=== PATIENT | male | born 1990 | race Caucasian/White ===

== ENCOUNTER 2019-02-25 09:43 | Emergency (ER) | payer BC, OTHER ==
[~2019-02-25] VITALS: Ht 188 cm; Wt 117.9 kg
[~2019-02-25 09:43] MED LIST: NAPR-1071 PO; PRD20T PO; TRAM50TA2 PO
[2019-02-25] MEDS ORDERED: KETOROLAC 60 MG/2 ML VIAL IM STA (09:58)
--- NOTE | 2019-02-25 10:15 | ED Upper Extremity ---
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 WHEN HE GOT WRIST CAUGHT IN DOOR C/O PAIN IN R WRIST. HAS A OLD INJURY TO WRIST. HAS APPOINTMENT AT [facility] IN MARCH TO HAVE WRIST LOOKED AT. REPORTS THIS WILL NOT BE WORKERS COMP. 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 He apparently went to open 1 door and the opposing door closed on his wrist. Has pain to the volar aspect of the wrist and feels some numbness in that area. No decrease in movement or distal sensation. Onset: this morning (within the last hour) Severity: mild Pain/Injury Location: right wrist Method of Injury: direct blow Modifying Factors: Improves With Immobilization; Worse With Movement Allergies and Home Medications Allergies Coded Allergies: NSAIDS (Non-Steroidal Anti-Inflamma (Verified Adverse Reaction, Unknown, HAS ULCER , 02/25/19) Patient Home Medication List Home Medication List Reviewed: Yes Review of Systems Constitutional: see HPI; No chills, No fever Respiratory: no symptoms reported Cardiovascular: no symptoms reported Musculoskeletal: see HPI, joint pain, muscle pain Skin: no symptoms reported Past Tevynjk-Icswvz-Rqyjhi Hx Past Med/Social Hx: Reviewed Nursing Past Med/Soc Hx Patient Social History Alcohol Use: Denies Use Recreational Drug Use: No Smoking Status: Never a Smoker Recent Foreign Travel: No Contact w/Someone Who Travel: No Recent Infectious Disease Expo: No Seasonal Allergies Seasonal Allergies: No Past Medical History Surgeries: Yes Orthopedic (multiple right wrist) Respiratory: No Cardiac: Yes Hypertension Neurological: No Reproductive Disorders: No Gastrointestinal: Yes (ULCER) Musculoskeletal: No Endocrine: No Cancer: No Psychosocial: Yes ADD/ADHD Integumentary: No Blood Disorders: No Family Medical History No Pertinent Family Hx Physical Exam Vital Signs Vital Signs - First Documented 02/25/19 10:01 Temp 96.4 Pulse 96 Resp 18 B/P (MAP) 142/68 (92) Pulse Ox 100 Capillary Refill : Less Than 3 Seconds Height, Weight, BMI Height: 6'2.00" Weight: 260lbs. oz. 117.430243sl; 38.74 BMI Method:Stated General Appearance: WD/WN, no apparent distress Cardiovascular: regular rate, rhythm, no murmur Respiratory: lungs clear, normal breath sounds Wrist: Yes limited ROM, Yes pain (volar aspect of the wrist), Yes soft tissue tenderness (volar aspect); No swelling Hand: normal ROM, Right Neurologic/Psychiatric: no motor/sensory deficits, alert, other (distal circulation and sensation as well as movement intact to the right hand) Skin: normal color, warm/dry Progress/Results/Core Measures Results/Orders My Orders Orders - JD VALDEZ MD Wrist, Right, 3 Views Or More (02/25/19 09:58) Ketorolac Injection (Toradol Injection) (02/25/19 09:58) Vital Signs/I&O 02/25/19 10:01 Temp 96.4 Pulse 96 Resp 18 B/P (MAP) 142/68 (92) Pulse Ox 100 Blood Pressure Mean: 92 Progress Progress Note : Progress Note Seen and evaluated. X-ray right wrist. Toradol 60 mg IM ordered. Ice pack given. Patient has his own splint. He does have orthopedic follow-up on March 28 at [facility]. Monitor patient. 1051: No acute fracture noted. 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 Patient has splint and we'll have him continue to use that. Also has prescription for Ultracet. Has follow-up artery set. Discharged home with return precautions. Patient verbalize understanding instructions and agreement with plan. Diagnostic Imaging Diagonstic Imaging: Xray Plain Films/CT/US/NM/MRI: other (wrist right) Comments Three-view right wrist shows no acute fracture and comparison to previous of 2016. Pending radiology review. Reviewed: Reviewed by Me Departure Impression Primary Impression: Contusion of right wrist, initial encounter Disposition: HOME, SELF-CARE Condition: Stable Departure-Patient Inst. Referrals: CARMEN GALDAMEZ DO (PCP/Family) Primary Care Physician Patient Instructions: Contusion (DC) Add. Discharge Instructions: All discharge instructions reviewed with patient and/or family. Voiced understanding. Use ice packs to area of concern 20 minutes per hour as needed to reduce pain and swelling. Continue home medications as previously prescribed. Follow-up with your orthopedist as scheduled on March 28. Use splint as needed to reduce motion and improve pain. Return for worse pain, swelling, weakness, numbness or other concerns as needed. JD VALDEZ MD Feb 25, 2019 10:15
--- NOTE | 2019-02-25 10:27 | NUR ---
X RAY DONE AT BEDSIDE.
--- OUTSIDE RECORDS SUMMARY | 2019-02-25 10:49 | XMS REPORT | Continuity of Care Document ---
Author Organization Unknown Address Unknown Allergies Active Description Code Type Severity Reaction Onset Reported/Identified Relationship to Patient Clinical Status Yes No Known Drug Allergies [id number] Drug Allergy Unknown N/A 11/25/2015 Medications There is no data. Problems Date Dx Coded Attending Type Code Diagnosis Diagnosed By 11/25/2015 RAÚL LOPEZ Ot G56.01 11/25/2015 RAÚL LOPEZ Ot S63.501A 11/25/2015 RAÚL LOPEZ Ot W50.0XXA 11/25/2015 RAÚL LOPEZ Ot Y92.511 11/25/2015 RAÚL LOPEZ Ot Y99.0 11/25/2015 RAÚL LOPEZ Ot Z87.81 11/26/2015 RAÚL LOPEZ Ot G56.01 11/26/2015 RAÚL LOPEZ Ot S63.501A 11/26/2015 RAÚL LOPEZ Ot W50.0XXA 11/26/2015 RAÚL LOPEZ Ot Y92.511 11/26/2015 RAÚL LOPEZ Ot Y99.0 11/26/2015 RAÚL LOPEZ Ot Z87.81 Procedures There is no data. Results There is no data. Encounters ACCT No. Visit Date/Time Discharge Status Pt. Type Provider Facility Loc./Unit Complaint [id number] 11/25/2015 10:50:00 11/25/2015 12:41:00 DIS Emergency RAÚL LOPEZ [facility]
--- NOTE | 2019-02-25 10:54 | Diagnostic Imaging Report ---
INDICATION: Injury with pain along the palmar aspect of the wrist. COMPARISON: 11/25/2015. FINDINGS: Widening of the scapholunate interval has become apparent since the previous exam. The joint space is about 6.9 mm. An unfused avulsion off the ulnar styloid is chronic. No acute fracture is identified. IMPRESSION: New widening of the scapholunate interval and ligamentous injury to the scapholunate could not be excluded. 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 No new osseous cortical abnormality. Dictated by: Dictated on workstation # [id number]
[2019-02-25 10:59] VITALS: BP 146/82
== END 2019-02-25 10:59 | disposition home or self-care (01) ==
LOC: EDUNIT# 09:43 → ER 09:44
DX: S60.211A Contusion of right wrist, initial encounter (principal); I10 Essential (primary) hypertension; F90.9 Attention-deficit hyperactivity disorder, unspecified type; Z88.6 Allergy status to analgesic agent; Z87.19 Personal history of other diseases of the digestive system; W22.09XA Striking against other stationary object, initial encounter
CPT/HCPCS: 73110; 96372

== ENCOUNTER 2019-07-31 12:29 | Emergency (ER) | payer BC ==
[~2019-07-31] VITALS: Ht 190.5 cm; Wt 108.9 kg
[2019-07-31] MEDS ORDERED: NS IV 1000 ML 1,000 ML IV ONE (12:51)
--- NOTE | 2019-07-31 12:56 | ED GI ---
General Chief Complaint: Abdominal/GI Problems Stated Complaint: VOMITING Nursing Triage Note: PT AMBULATE TO ROOM 08 WITH C/O N/V STARTING LAST NIGHT. NO C/O ABD PAIN, DIARRHEA. PT STATES HE HAS A "SPECIAL NEEDS CHILD AT HOME" AND HIS TOLD HIM HE NEEDED TO GET CHECKED OUT BEFORE HE CAME HOME. PT STATES HIS PCP IS CLOSED TODAY. Sepsis Screen: No Definite Risk Source of Information: Patient Exam Limitations: No Limitations History of Present Illness Date Seen by Provider: Jul 31, 2019 Time Seen by Provider: 12:55 Initial Comments 29-year-old male patient presents with complaints of nausea and vomiting beginning last night. Patient denies diarrhea, constipation, abdominal distention, or abdominal pain. Patient states his 13-year-old daughter and is special needs and he was told by his not to come home until he was checked out by a medical provider. Patient states his prior care provider's office was closed today. Timing/Duration: 12-24 Hours Severity/Quality: Aching Activities at Onset: None Modifying Factors: Worsens With Eating Allergies and Home Medications Allergies Coded Allergies: NSAIDS (Non-Steroidal Anti-Inflamma (Verified Adverse Reaction, Unknown, HAS ULCER , 02/25/19) Home Medications Ondansetron 8 Mg Tab.rapdis, 8 MG PO Q6H PRN for NAUSEA/VOMITING Prescribed by: RAÚL BLUM on 07/31/19 9126 Patient Home Medication List Home Medication List Reviewed: Yes Review of Systems Review of Systems Constitutional: chills; No diaphoresis, No dizziness, No fever; malaise; No weakness EENTM: No Symptoms Reported Respiratory: Denies Cough, Denies Shortness of Air, Denies Wheezing Cardiovascular: Denies Chest Pain, Denies Edema, Denies Irregular Heart Rate, Denies Lightheadedness, Denies Palpitations, Denies Syncope Gastrointestinal: Denies Abdomen Distended, Denies Abdominal Pain, Denies Blood Streaked Stools, Denies Constipated, Denies Diarrhea, Denies Difficulty Swallowi ng; Nausea, Poor Appetite, Poor Fluid Intake; Denies Rectal Bleeding; Vomiting Genitourinary: Denies Burning, Denies Frequency, Denies Flank Pain, Denies Hematuria Musculoskeletal: back pain (left mid back pain) Skin: no symptoms reported Psychiatric/Neurological: No Symptoms Reported All Other Systems Reviewed Negative Unless Noted: Yes (Negative excepted noted.) Past Dowlzcs-Claeow-Yuqczo Hx Past Med/Social Hx: Reviewed Nursing Past Med/Soc Hx Patient Social History Alcohol Use: Denies Use Recreational Drug Use: No Smoking Status: Never a Smoker 2nd Hand Smoke Exposure: No Recent Foreign Travel: No Contact w/Someone Who Travel: No Recent Infectious Disease Expo: No Recent Hopitalizations: No Physical Abuse: No Sexual Abuse: No Mistreated: No Fear: No Seasonal Allergies Seasonal Allergies: No Past Medical History Surgeries: Yes (GASTRIC BYPASS) Gallbladder, Orthopedic (right wrist fusion) Respiratory: No Cardiac: Yes Hypertension Neurological: No Reproductive Disorders: No Gastrointestinal: Yes (ULCER, GASTRIC BYPASS) Musculoskeletal: No Endocrine: No Cancer: No Psychosocial: Yes ADD/ADHD Integumentary: No Blood Disorders: No Family Medical History No Pertinent Family Hx Physical Exam Vital Signs Vital Signs - First Documented 07/31/19 12:41 Temp 36.5 Pulse 76 Resp 17 B/P (MAP) 141/89 (106) O2 Delivery Room Air Capillary Refill : Less Than 3 Seconds Height/Weight/BMI Height: 6'2.00" Weight: 260lbs. oz. 117.297236jw; 30.00 BMI Method:Stated General Appearance: WD/WN, no apparent distress HEENT: PERRL/EOMI, pharynx normal Neck: non-tender, full range of motion, supple, normal inspection Respiratory: lungs clear, normal breath sounds, no respiratory distress, no accessory muscle use Cardiovascular: normal peripheral pulses, regular rate, rhythm, no edema, no gallop, no murmur Peripheral Pulses: 2+ Dorsalis Pedis (R), 2+ Left Dors-Pedis (L), 2+ Radial Pulses (R), 2+ Radial Pulses (L) Gastrointestinal: normal bowel sounds, soft, no organomegaly, no pulsatile mass; No distended, No guarding, No rebound; tenderness (mild epigastric tenderness); No mass Extremities: no pedal edema, no calf tenderness, normal capillary refill Back: normal inspection, no CVA tenderness, no vertebral tenderness, muscle spasm (left mid back muscle spasm with mild tenderness) Neurologic/Psychiatric: alert, normal mood/affect, oriented x 3 Skin: normal color, warm/dry Progress/Results/Core Measures Results/Orders Lab Results Laboratory Tests Test 07/31/19 12:55 07/31/19 13:30 Range/Units White Blood Count 9.8 4.3-11.0 10^3/uL Red Blood Count 4.67 4.35-5.85 10^6/uL Hemoglobin 14.4 13.3-17.7 G/DL Hematocrit 41 40-54 % Mean Corpuscular Volume 87 80-99 FL Mean Corpuscular Hemoglobin 31 25-34 PG Mean Corpuscular Hemoglobin Concent 35 32-36 G/DL Red Cell Distribution Width 12.8 10.0-14.5 % Platelet Count 227 130-400 10^3/uL Mean Platelet Volume 8.6 7.4-10.4 FL Neutrophils (%) (Auto) 80 H 42-75 % Lymphocytes (%) (Auto) 14 12-44 % Monocytes (%) (Auto) 5 0-12 % Eosinophils (%) (Auto) 1 0-10 % Basophils (%) (Auto) 0 0-10 % Neutrophils # (Auto) 7.9 H 1.8-7.8 X 10^3 Lymphocytes # (Auto) 1.3 1.0-4.0 X 10^3 Monocytes # (Auto) 0.5 0.0-1.0 X 10^3 Eosinophils # (Auto) 0.1 0.0-0.3 10^3/uL Basophils # (Auto) 0.0 0.0-0.1 10^3/uL Sodium Level 140 135-145 MMOL/L Potassium Level 4.1 3.6-5.0 MMOL/L Chloride Level 104 98-107 MMOL/L Carbon Dioxide Level 27 21-32 MMOL/L Anion Gap 9 5-14 MMOL/L Blood Urea Nitrogen 11 7-18 MG/DL Creatinine 0.65 0.60-1.30 MG/DL Estimat Glomerular Filtration Rate > 60 BUN/Creatinine Ratio 17 Glucose Level 96 70-105 MG/DL Calcium Level 9.7 8.5-10.1 MG/DL Corrected Calcium 8.5-10.1 MG/DL Total Bilirubin 0.7 0.1-1.0 MG/DL Aspartate Amino Transf (AST/SGOT) 16 5-34 U/L Alanine Aminotransferase (ALT/SGPT) 26 0-55 U/L Alkaline Phosphatase 64 40-136 U/L Total Protein 7.0 6.4-8.2 GM/DL Albumin 4.6 H 3.2-4.5 GM/DL Lipase 12 8-78 U/L Urine Color YELLOW Urine Clarity CLEAR Urine pH 7.0 5-9 Urine Specific Herald 1.025 H 1.016-1.022 Urine Protein NEGATIVE NEGATIVE Urine Glucose (UA) NEGATIVE NEGATIVE Urine Ketones TRACE H NEGATIVE Urine Nitrite NEGATIVE NEGATIVE Urine Bilirubin NEGATIVE NEGATIVE Urine Urobilinogen 0.2 < = 1.0 MG/DL Urine Leukocyte Esterase NEGATIVE NEGATIVE Urine RBC (Auto) NEGATIVE NEGATIVE Urine RBC NONE /HPF Urine WBC 0-2 /HPF Urine Squamous Epithelial Cells RARE /HPF Urine Crystals PRESENT H /LPF Urine Amorphous Sediment RARE SAIMA PHOSPHATE H /LPF Urine Bacteria TRACE /HPF Urine Casts NONE /LPF Urine Mucus NEGATIVE /LPF Urine Culture Indicated NO My Orders Orders - RAÚL BLUM Ed Iv/Invasive Line Start (07/31/19 12:51) Ondansetron Injection (Zofran Injectio (07/31/19 13:00) Cbc With Automated Diff (07/31/19 12:51) Comprehensive Metabolic Panel (07/31/19 12:51) Lipase (07/31/19 12:51) Ua Culture If Indicated (07/31/19 12:51) Ns Iv 1000 Ml (Sodium Chloride 0.9%) (07/31/19 12:51) Urine Culture (07/31/19 13:53) Medications Given in ED Current Medications Medications Dose Ordered Sig/Toni Route Start Time Stop Time Status Last Admin Dose Admin Ondansetron HCl 4 mg ONCE ONCE IVP 07/31/19 13:00 07/31/19 13:01 DC 07/31/19 13:20 4 MG Sodium Chloride 1,000 ml @ 0 mls/hr Q0M ONCE IV 07/31/19 12:51 07/31/19 12:54 DC 07/31/19 13:20 999 MLS/HR Vital Signs/I&O 07/31/19 12:41 Temp 36.5 Pulse 76 Resp 17 B/P (MAP) 141/89 (106) O2 Delivery Room Air Blood Pressure Mean: 106 POS Departure Communication (Admissions) Patient seen and evaluated. Labs obtained. Patient was given 1 L normal saline and 4 mg of Zofran with improvement in symptoms. All laboratory findings were discussed with the patient. No vomiting in the ED. Plan for discharge to home. Patient to return immediately to the emergency department for worsened symptoms or any other concerns. Impression Primary Impression: Nausea and vomiting Qualified Codes: R11.2 - Nausea with vomiting, unspecified Disposition: 01 HOME, SELF-CARE Condition: Improved Departure-Patient Inst. Decision time for Depature: 13:55 Referrals: TORI GALVAN DO (PCP) Primary Care Physician Patient Instructions: Viral Gastroenteritis, Nausea and Vomiting, Adult Add. Discharge Instructions: All discharge instructions reviewed with patient and/or family. Voiced understanding. Medications as instructed. Tylenol [id number] as directed for pain. Drink plenty of fluids to stay hydrated. Alternate water with Powerade/Gatorade. Rest. Follow-up with your primary care provider for recheck as an outpatient. Return to the emergency department for worsened symptoms, rectal bleeding, black stools, abdominal swelling, vomiting blood, dizziness, fever, or any other concerns. Scripts Ondansetron (Ondansetron Odt) 8 Mg Tab.rapdis 8 MG PO Q6H PRN for NAUSEA/VOMITING, #10 TAB 0 Refills Prov: RAÚL BLUM 07/31/19 Images Torso/Trunk 1 - Muscle Spams, Tenderness RAÚL BLUM Jul 31, 2019 12:56 POS
[2019-07-31] MEDS ORDERED: ONDANSETRON 4 MG/2 ML (SDV) Z0FRAN IVP ONE (13:00)
[2019-07-31 13:02] LABS: BASOPHILS % (AUTO) 0 % (0-10); EOSINOPHILS # (AUTO) 0.1 10^3/uL (0.0-0.3); EOSINOPHILS % (AUTO) 1 % (0-10); HEMATOCRIT 41 % (40-54); HEMOGLOBIN 14.4 G/DL (13.3-17.7); LYMPHOCYTES # (AUTO) 1.3 X 10^3 (1.0-4.0); LYMPHOCYTES % (AUTO) 14 % (12-44); MEAN CORPUSCULAR HEMOGLOBIN 31 PG (25-34); MEAN CORPUSCULAR HGB CONC 35 G/DL (32-36); MEAN CORPUSCULAR VOLUME 87 FL (80-99); MEAN PLATELET VOLUME 8.6 FL (7.4-10.4); MONOCYTES # (AUTO) 0.5 X 10^3 (0.0-1.0); MONOCYTES % (AUTO) 5 % (0-12); NEUTROPHILS # (AUTO) 7.9 X 10^3 (1.8-7.8); NEUTROPHILS % (AUTO) 80 % (42-75); PLATELET COUNT 227 10^3/uL (130-400); RED CELL DISTRIBUTION WIDTH 12.8 % (10.0-14.5); WHITE BLOOD COUNT 9.8 10^3/uL (4.3-11.0)
[2019-07-31 13:19] LABS: ALANINE AMINOTRANSFERASE 26 U/L (0-55); ALBUMIN 4.6 GM/DL (3.2-4.5); ALKALINE PHOSPHATASE 64 U/L (40-136); BILIRUBIN,TOTAL 0.7 MG/DL (0.1-1.0); BUN/CREATININE RATIO 17; CALCIUM 9.7 MG/DL (8.5-10.1); CARBON DIOXIDE 27 MMOL/L (21-32); CHLORIDE 104 MMOL/L (98-107); CREATININE SERUM 0.65 MG/DL (0.60-1.30); GFR ESTIMATED > 60; GLUCOSE 96 MG/DL (70-105); LIPASE 12 U/L (8-78); POTASSIUM 4.1 MMOL/L (3.6-5.0); SODIUM 140 MMOL/L (135-145)
[2019-07-31 13:37] LABS: BILIRUBIN,URINE NEGATIVE (NEGATIVE); CLARITY,URINE CLEAR; COLOR,URINE YELLOW; GLUCOSE, URINE (UA) NEGATIVE (NEGATIVE); KETONES,URINE TRACE (NEGATIVE); LEUKOCYTE ESTERASE ,URINE NEGATIVE (NEGATIVE); NITRITE,URINE NEGATIVE (NEGATIVE); PROTEIN,URINE NEGATIVE (NEGATIVE)
[2019-07-31 13:48] LABS: AMORPHOUS SEDIMENT,UR RARE AMOR PHOSPHATE /LPF; BACTERIA,URINE TRACE /HPF; SQUAMOUS EPITHELIAL CELL,UR RARE /HPF; WBC,URINE 0-2 /HPF
[2019-07-31] MEDS ORDERED: ONDA8TAB13 PO (13:56)
[2019-07-31 14:45] VITALS: BP 137/88
== END 2019-07-31 14:45 | disposition home or self-care (01) ==
LOC: EDUNIT# 12:29 → ER 12:30
DX: R11.2 Nausea with vomiting, unspecified (principal); I10 Essential (primary) hypertension; F90.9 Attention-deficit hyperactivity disorder, unspecified type; Z88.6 Allergy status to analgesic agent; Z98.84 Bariatric surgery status
CPT/HCPCS: 36415; 80053; 81000; 83690; 85025; 87088